=== PATIENT | female | born 1980 | race Caucasian/White ===

== ENCOUNTER 2024-04-29 08:17 | Outpatient (AMB) | payer BC, SELFPAY ==
--- NOTE | 2024-04-29 08:38 | MHC.OFFWIV ---
Intake Vital Signs 04/29/24 08:39 Height 5 ft 10 in Weight 87.997 kg BMI 27.8 BP 128/82 Blood Pressure Location Rt brachial Position Sitting Pulse 60 Pulse Source Pulse Oximeter Temp 98.4 F Temp Source Oral Pulse Oximetry (%) 98 Oxygen Delivery Method Room Air Intake Visit Reasons: Pain back of head rt side behind ear (3 wks) Intake Note: pt here c/o head pain behind RT ear x 3 weeks Patient Tobacco Use Status: Former Tobacco user Allergies No Known Allergies Allergy (Verified 04/29/24 08:39) Do you need a note to return to daycare/school/sports/work: Yes HPI Pain back of head rt side behind ear (3 wks) HPI Details Patient presents with pain along the right neck, occipital area and behind ear x3 weeks. Denies illness, fever, rash, sinus symptoms, injury, weakness, vision or hearing changes, known tick bites, focal neurological deficits. History of headaches, or similar symptoms. He did try Advil once with little relief. He describes the pain as throbbing. At best it is ?annoying?. Currently in the morning time he describes it as 4/10. At worst it gets to 6/10. PFSH Social History Patient Tobacco Use Status: Former Tobacco user Review of Systems Const Reports as per HPI, Reports no additional complaints and Denies weakness Eyes Reports no additional complaints and Denies loss of vision ENT Reports no additional complaints, Reports as per HPI, Denies Normal hearing present, Denies vertigo and Denies dizziness GI Reports as per HPI and Reports no additional complaints Musc Reports no additional complaints, Reports as per HPI, Denies abnormal gait, Denies numbness and Denies tingling Skin/Breast Denies lesions Neuro Reports no additional complaints, Reports as per HPI, Denies Normal hearing present, Denies Abnormal speech present, Denies abnormal gait, Denies confusion, Denies vertigo, Denies dizziness, Denies lack of coordination, Denies loss of vision, Denies memory loss, Denies numbness, Denies radicular pain, Denies Sensory deficit (Neuro), Denies tingling, Denies paresthesias and Denies weakness Psych Denies confusion and Denies memory loss Physical Exam Vital Signs: Last Vital Signs Temp 98.4 F 04/29/24 08:39 Pulse 60 08/05/24 08:39 BP 128/82 04/29/24 08:39 Pulse Ox 98 04/29/24 08:39 Oxygen Delivery Method Room Air 04/29/24 08:39 BMI result Body Mass Index 27.8 Const General: cooperative, healthy appearing, comfortable, no acute distress and well developed; No confusion Nutritional Appearance: average body habitus Orientation/consciousness: patient oriented x3 and No confusion Limitations: no limitations HEENT Head: Yes normal to inspection, Yes normocephalic, Yes atraumatic, No occipital foramen tenderness, No scalp tenderness and No Temporal artery tenderness present Ears: hearing grossly normal bilaterally, TM's normal bilaterally, EAC's normal, normal mastoids bilaterally (No mastoid tenderness) and no periauricular adenopathy General nose exam: Normal external nose present Face and sinus: Yes normal facial exam and Yes sinuses nontender Mouth: oropharynx normal Eyes Pupils: Equal, round and reactive pupils present Neck Neck: Yes normal visual inspection, Yes full ROM, Yes no lymphadenopathy, Yes no meningeal signs, Yes trachea midline, Yes supple and Yes no JVD Thyroid: Thyroid normal Carotids: normal carotid upstroke Lymphatic: no lymphadenopathy noted Resp Effort & Inspection: normal respiratory effort Auscultation: clear to auscultation bilaterally Cardio Rate: regular rate Rhythm: regular rhythm Heart sounds: S1 normal heart sound present and S2 normal heart sound present Back/Spine/Pelvis Cervical Spine: cervical ROM normal, cervical muscular tenderness (Mild right up to occiput) and No pain with cervical ROM Neuro General: patient oriented x3, no meningeal signs and No confusion Cranial nerves: Yes CN's II-XII intact bilaterally, Yes Equal, round and reactive pupils present, Yes Normal facial strength present, Yes Midline tongue present and No Normal hearing present Cognition (Neuro): normal cognition Speech: No Abnormal speech present Gait exam (Neuro): Normal gait present Motor exam (neuro): 5/5 motor strength present throughout Sensory Exam: No Sensory deficit (Neuro) Coordination: Romberg test negative Pupils: Normal pupillary reactivity/response: bilateral Extrem General: Yes normal to inspection Assessment & Plan Assessment & Plan (1) Headache: Code(s): R51.9 - Headache, unspecified Qualifiers: Headache type: tension-type Headache chronicity pattern: acute headache Intractability: not intractable Qualified Code(s): G44.209 - Tension-type headache, unspecified, not intractable Plan: Will try treatment Flexeril and continue NSAIDs. Advised patient if any symptoms are worse, and experiences new symptoms or neurological deficits he should be seen in emergency department. Will also check basic labs rule out other causes of headache. As patient does not have primary care and has not been seen in several years by one. He is in the [employer] and does have an annual physical through work which is limited. Advised to establish care either here or at another local practice. May need MRI or referral to neurology if symptoms persist. We also discussed physical therapy self rehab or possibly career resource technician he could consider for self-care. Again strongly advised ER if symptoms do not improve, worsen or are associated with any weakness, numbness or tingling facial droop worsening headache vision or hearing changes are otherwise feeling unwell in any way. Orders: Orders TSH reflex Free T4 Today R51.9 - Headache, unspecified Basic Metabolic Panel Today R51.9 - Headache, unspecified Lyme IgG/IgM w/reflex to WB Today R51.9 - Headache, unspecified Erythrocyte Sedimentation Rate Today R51.9 - Headache, unspecified Medications: New cyclobenzaprine 10 mg PO BEDTIME PRN 20 tabs 0RF muscle spasm Coding Level of Care Code New Pt Level 4 (21006) Diagnoses Acute non intractable tension-type headache G44.209 Headache type: tension-type Headache chronicity pattern: acute headache Intractability: not intractable
[2024-04-29 08:39] VITALS: BP 128/82; PULSE 60; TEMP 36.9; O2SAT 98; BMI 27.8
== END 2024-04-29 09:41 | disposition home or self-care (01) ==
PROVIDERS: Visit Provider Physician Assistant
DX: G44.209 Tension-type headache, unspecified, not intractable (principal)
CPT/HCPCS: 99204

== ENCOUNTER 2024-04-29 09:42 | Outpatient (REF) | payer BC, SELFPAY ==
[2024-04-29 13:58] LABS: Anion Gap 11 (12-20); Blood Urea Nitrogen 14 mg/dL (9-16); Calcium 9.3 mg/dL (8.4-10.2); Carbon Dioxide 29 mmol/L (22-29); Chloride 104 mmol/L (96-108); Estimated Glomerular Filt Rate > 60; Glucose Random 84 mg/dL (60-115); Potassium 4.5 mmol/L (3.3-5.1); Sodium 139 mmol/L (135-145); TSH reflex Free T4 0.79 uIU/mL (0.32-4.0)
[2024-04-29 14:06] LABS: Erythrocyte Sedimentation Rate 3 MM/HR (0-20)
[2024-04-30 17:23] LABS: Lyme Abs Screen <0.90 index
== END 2024-04-29 09:43 | disposition home or self-care (01) ==
LOC: HO.HMGCLDS 09:42
PROVIDERS: Visit Provider Physician Assistant
DX: R51.9 Headache, unspecified (principal)
CPT/HCPCS: 36415; 80048; 84443; 85652; 86617; 86618